=== PATIENT | male | born 1960 | race Caucasian/White ===

== ENCOUNTER 2016-09-17 07:17 | Inpatient (IN) | payer BC ==
[~2016-09-17] VITALS: Ht 185.4 cm; Wt 85.0 kg
[2016-09-17 08:50] LABS: EOSINOPHIL COUNT 0.1 K/uL (0-0.3); HEMATOCRIT 43.1 % (38.0-50.0); IMMATURE GRANULOCYTE (%) 0.2 % (0.0-0.7); INSTRUMENT ABS NEUTROPHIL CT 3.5 K/uL; LYMPHOCYTE COUNT 2.3 K/uL (1.0-2.8); MCH 29.5 PG (29.0-34.0); MCHC 34.3 G/DL (30.0-36.0); MCV 85.9 FL (86-99); MEAN PLAT.VOLUME 9.9 uM^3 (9.0-12.4); MONOCYTE (%) 6.8 % (3-12); MONOCYTE COUNT 0.4 K/uL (0-0.8); NEUTROPHIL (%) 55.3 % (45-76); NEUTROPHIL COUNT 3.5 K/uL (1.8-6.4); PLATELET COUNT 260 K/uL (156-360); RBC DIS.WIDTH-CV 13.4 % (11.8-14.6); RBC DIS.WIDTH-SD 41.9 % (39-53); RED BLOOD COUNT 5.02 M/uL (4.00-5.50); WHITE BLOOD COUNT 6.4 K/uL (4.1-10.2)
[2016-09-17 09:35] LABS: ANION GAP 11 MEQ/L (2-14); CHLORIDE 106 MEQ/L (99-109); POTASSIUM 3.6 MEQ/L (3.7-5.4); SAMPLE HEMOLYSIS CHECK 0; SAMPLE ICTERIC CHECK 0; SAMPLE LIPEMIA CHECK 0; SODIUM 139 MEQ/L (136-147)
[2016-09-17 09:40] LABS: GFR ESTIMATE (CALCULATED) > 59 mL/min/; GLUCOSE 146 mg/dL (70-99); UREA NITROGEN (BUN) 13 mg/dL (9-23)
[2016-09-17] MEDS ORDERED: GLUCOSAMINE1000 MG PO (11:09)
[2016-09-17] MEDS ORDERED: FISH OIL 1,001000 M2 PO (11:09)
[2016-09-17] MEDS ORDERED: GLUCOPHAGE500 MG PO (11:09)
[2016-09-17] MEDS ORDERED: HYDROCHLOROTHIA25 MG PO (11:09)
[2016-09-17] MEDS ORDERED: LIPITOR40 MG PO (11:09)
[2016-09-17] MEDS ORDERED: B COMPLETE1 EACH PO (11:10)
[2016-09-17 12:20] VITALS: BP 143/79
[2016-09-17 12:41] LABS: POINT-OF-CARE METER ID UU13113725
[2016-09-17 15:15] VITALS: BP 115/60
[2016-09-17 17:47] LABS: POINT-OF-CARE METER ID UU13113725
[2016-09-17 19:08] VITALS: BP 120/69
[2016-09-17 22:47] VITALS: BP 119/59
[2016-09-18 07:39] VITALS: BP 163/73
[2016-09-18 12:29] LABS: POINT-OF-CARE METER ID UU13113725
[2016-09-18 15:11] VITALS: BP 142/65
[2016-09-18 22:56] VITALS: BP 124/66
[2016-09-19 07:20] VITALS: BP 150/73
[2016-09-19 13:38] LABS: POINT-OF-CARE METER ID UU13113725
[2016-09-19 15:17] VITALS: BP 153/77
[2016-09-19 17:25] LABS: POINT-OF-CARE METER ID UU13113725
== END 2016-09-19 18:37 | disposition home or self-care (01) | DRG 395 ==
LOC: EME 07:17 → EDOF 10:06 → 5EAST 10:06 → EDOF 10:06 → 5EAST 12:02
PROVIDERS: Emergency Medicine; Internal Medicine
PROC: 0DCN8ZZ Extirpation of Matter from Sigmoid Colon, Via Natural or Artificial Opening Endoscopic (ICD-10-PCS; principal; 2016-09-19)
DX: T18.5XXA Foreign body in anus and rectum, initial encounter (principal); X58.XXXA Exposure to other specified factors, initial encounter; Y93.89 Activity, other specified; E11.65 Type 2 diabetes mellitus with hyperglycemia; I10 Essential (primary) hypertension; E78.5 Hyperlipidemia, unspecified; F17.200 Nicotine dependence, unspecified, uncomplicated; K59.00 Constipation, unspecified
CPT/HCPCS: 74000; 80048; 82948; 85025; 99281; 99285; G0378; J1815; J7030; S0028